=== PATIENT | female | born 1975 | race Caucasian/White ===

== ENCOUNTER 2019-08-15 09:35 | Emergency (ER) | payer OTHER ==
[~2019-08-15] VITALS: Ht 152.4 cm; Wt 72.6 kg
[~2019-08-15 09:35] MED LIST: BYSTOLIC 5 MG5 M1 PO; COMPAZINE10 MG PO; FLOMAX0.4 MG PO; HYDROCHLOROTH12.5 M1 PO; LEVOTHYROXIN0.075 MG PO; NORCO 5-325 TA1 EACH PO; ONDANSETRON HCL4 M2 PO; VICODIN 5-5001 EACH PO; VITAMIN D 5050000 I1 PO; ZOFRAN ODT4 MG PO
[2019-08-15 09:48] LABS: URINE BILIRUBIN NEGATIVE (Negative); URINE BLOOD NEGATIVE (Negative); URINE CLARITY CLEAR; URINE COLOR YELLOW; URINE GLUCOSE-RANDOM* NEGATIVE (Negative); URINE KETONES NEGATIVE (Negative); URINE LEUKOCYTES-REFLEX TRACE (Negative); URINE NITRITE-REFLEX NEGATIVE (Negative); URINE PROTEIN (DIPSTICK) NEGATIVE (Negative); URINE UROBILINOGEN 0.2 E.U./dl (0.2-1.0)
[2019-08-15] MEDS ORDERED: MEDROXYPROGESTE10 MG PO (09:58)
[2019-08-15] MEDS ORDERED: SYNTHROID88 MC1 PO (09:59)
[2019-08-15 10:14] LABS: ABSOLUTE NEUTROPHILS 4.4 thou/uL (1.4-8.2); BASOPHILS 0.8 % (0.0-2.0); EOSINOPHILS 1.2 % (0.0-3.0); HEMATOCRIT 42.6 % (37.0-47.0); HEMOGLOBIN 13.8 gm/dL (12.0-15.0); LYMPHOCYTES 20.8 % (24.0-44.0); MCH 27.7 pg (26.0-34.0); MCHC 32.4 g/dL (28.0-37.0); MCV 85.6 fL (80.0-100.0); MONOCYTES 6.4 % (1.0-8.0); PLATELET COUNT 226 thou/uL (150-400); POLYS 70.8 % (36.0-66.0); RBC 4.98 mil/uL (4.20-5.00); RDW 14.2 % (10.5-14.5); WBC 6.2 thou/uL (4.0-11.0)
[2019-08-15 10:18] LABS: ANION GAP 7 mmol/L (7-16); BUN 14 mg/dL (7-18); CALCIUM 9.8 mg/dL (8.5-10.1); CHLORIDE 102 mmol/L (98-107); CO2 27 mmol/L (21-32); GLUCOSE 115 mg/dL (74-106); POTASSIUM 3.7 mmol/L (3.5-5.1); SODIUM 136 mmol/L (136-145)
[2019-08-15 10:24] LABS: ALBUMIN 4.2 g/dL (3.4-5.0); DIRECT BILIRUBIN < 0.1 mg/dL (<0.1-0.2); SGOT 23 U/L (15-37); SGPT 41 U/L (30-65); TOTAL BILIRUBIN 0.4 mg/dL (<0.1-1.0); TOTAL PROTEIN 8.7 g/dL (6.4-8.2)
[2019-08-15 10:52] LABS: PLATELET ESTIMATE NORMAL
[2019-08-15] MEDS ORDERED: FLOMAX0.4 MG PO (14:17)
[2019-08-15] MEDS ORDERED: ZOFRAN ODT4 MG PO (14:17)
[2019-08-15] MEDS ORDERED: TORADOL 10 MG T10 MG PO (14:17)
[2019-08-15 16:00] VITALS: BP 126/86
== END 2019-08-15 14:29 | disposition home or self-care (01) ==
LOC: ER 09:35
PROVIDERS: Emergency Medicine
DX: N20.1 Calculus of ureter (principal); R11.2 Nausea with vomiting, unspecified; I10 Essential (primary) hypertension; G43.909 Migraine, unspecified, not intractable, without status migrainosus; Z87.442 Personal history of urinary calculi; Z88.6 Allergy status to analgesic agent